=== PATIENT | male | born 1970 | race Hispanic/Latino ===

== ENCOUNTER → 2019-09-12 | Outpatient (CLI) | payer BC | END | disposition home or self-care (01) | LOC: LAB 09:50 | DX: R19.7 Diarrhea, unspecified (principal) | CPT/HCPCS: 36415 ==

== ENCOUNTER 2019-11-18 06:10 | Day surgery (SDC) | payer BC ==
[2019-11-18] MEDS ORDERED: SODIUM CHLORIDE 0.9% 1000 ML 1,000 ML ONE (07:05)
[2019-11-18] MEDS ORDERED: SODIUM CHLORIDE 0.9% 1000 ML 1,000 ML IV SCH (07:30)
--- NOTE | 2019-11-18 08:08 | Anesthesia Consultation ---
Anesthesia Consult and Med Hx Date of service: 11/18/19 - Airway Anesthetic Teeth Evaluation: Good (#25 loose) ROM Head & Neck: Adequate Mental/Hyoid Distance: Adequate Mallampati Class: Class II Intubation Access Assessment: Probably Good - Pre-Operative Health Status ASA Pre-Surgery Classification: ASA2 Proposed Anesthetic Plan: MAC - Pulmonary Hx Smoking: No Hx Asthma: No Hx Respiratory Symptoms: No SOB: No COPD: No Home Oxygen Therapy: No Hx Pneumonia: No Hx Sleep Apnea: Yes - Cardiovascular System Hx Hypertension: No Hx Coronary Artery Disease: No Hx Heart Attack/AMI: No Hx Angina: No Hx Percutaneous Transluminal Coronary Angioplasty (PTCA): No Hx Cardia Arrhythmia: No Hx Pacemaker: No Hx Internal Defibrillator: No Hx Valvular Heart Disease: No Hx Heart Murmur: No Hx Peripheral Vascular Disease: No - Central Nervous System Hx Neuromuscular Disorder: No Hx Seizures: No CVA: No Hx Back Pain: No Hx Psychiatric Problems: No - Gastrointestinal Hx Ulcer: No Hx Gastroesophageal Reflux Disease: No - Endocrine Hx Renal Disease: No Hx End Stage Renal Disease: No Hx Cirrhosis: No Hx Liver Disease: No Hx Insulin Dependent Diabetes: No Hx Non-Insulin Dependent Diabetes: No Hx Thyroid Disease: No Hx Hypothyroidism: No Hx Hyperthyroidism: No - Hematic Hx Anemia: No Hx Sickle Cell Disease: No - Other Systems Hx Alcohol Use: No Hx Substance Use: No Hx Cancer: No Hx Obesity: No
--- NOTE | 2019-11-18 08:09 | Anesthesia Day of Surgery ---
Anesthesia Day of Surgery - Day of Surgery Patient Examined: Yes Patient H&P Reviewed: Yes Patient is NPO: Yes
[2019-11-18] MEDS ORDERED: LIDOCAINE MPF (2%) 20 MG/1 ML VIAL 5 ML ONE (08:19)
[2019-11-18] MEDS ORDERED: propofoL 200 MG/20 ML VIAL IV ONE ×3 (08:19→08:41)
--- NOTE | 2019-11-18 09:05 | Short Stay Summary ---
Short Stay Documentation Date of service: 11/18/19 - History H&P: obtained from office - Allergies and Medications Current Medications: Allergies Penicillins Allergy (Verified 11/18/19 07:18) Hives Home Medications Medication Instructions Recorded Confirmed Last Taken Type Folic Acid 0.4 mg PO QDAY 11/18/19 11/18/19 11/15/19 History Glucos Sul 2Kcl/MSM/Chond/C/Mn 1 each PO DAILY 11/18/19 11/18/19 11/15/19 11:00 History [Glucosamine Chondroitin Cap] Magnesium Oxide [Magnesium] 400 mg PO DAILY 11/18/19 11/18/19 11/11/19 History Multivitamin [Multiple Vitamins] 1 each PO DAILY 11/18/19 11/18/19 11/11/19 History Simethicone [Phazyme] 180 mg PO DAILY 11/18/19 11/18/19 11/16/19 History Active Medications Sodium Chloride (Nacl 0.9% 1000 Ml) 1,000 mls @ 50 mls/hr IV DIRECT BHUMIKA - Brief post op/procedure progress note Date of procedure: 11/18/19 Findings: see dictations Estimated blood loss: minimal Pathology: list (1. Biopsies of 2nd portion of duodenum and bulb for celiac disease. 2. Antral biopsies for h.pylori) Specimen disposition: to lab Condition: stable - Disposition Condition at discharge: Good Disposition: DC-01 TO HOME OR SELFCARE - Discharge Diagnoses (1) Celiac disease/sprue Status: Acute (2) Abdominal pain Status: Acute (3) Abdominal bloating Status: Acute (4) Colon cancer screening Status: Acute Short Stay Discharge Plan Activity: other (No driving for 24 hours) Weight Bearing Status: Full Weight Bearing Diet: other (Gluten free diet) Follow up with: PRIMARY CARE, [Primary Care Provider] - 7 Days
--- NOTE | 2019-11-18 09:10 | Operative Report ---
Operative Report Operative Report: Date of procedure: 11/18/2019 Procedure: Esophagogastroduodenoscopy with biopsies of the descending duodenum and biopsies of the stomach. Preprocedure diagnosis: Abdominal bloating pain and altered bowel habits. Suspected celiac disease by serology. Post procedure diagnosis: Abnormal appearing descending duodenum with grossly flattened villi and patchy mild inflammatory changes suspicious for celiac disease. Endoscopist: Dr. Knott Anesthesia: Monitored anesthesia care per anesthesia department Medications: Propofol per anesthesia. Estimated blood loss: 0. After careful discussion of the nature and purpose of the procedure as well as details the technique risks benefits and alternatives consent was obtained. The patient was placed in the left lateral decubitus position and medicated per anesthesia. The tip of the the Olympus video upper scope was passed per orum under direct vision into the esophagus and advanced into the stomach and duodenal bulb. The duodenal bulb and pylorus were symmetrical and normal. The scope was withdrawn into the stomach and the stomach then gently insufflated with air. The antrum was normal. The stomach was rather elongated necessitating a change of scope to reach the duodenum effectively. The EGD scope was withdrawn followed by inserting the pediatric colonoscope poroma under direct vision into the esophagus and advanced into the descending duodenum up to the third portion. The mucosa of the third and second portions of the duodenum demonstrated grossly flattened villi and a few patchy areas of mild inflammation strongly suggestive of celiac disease. Multiple biopsies were taken from the second portion of the duodenum and the duodenal bulb. The stomach was further insufflated and the scope was then retroflexed and partially withdrawn. The scope was withdrawn into the stomach and biopsies of the antrum were taken for H. pylori testing. The cardia, fundus, and body of the stomach were within normal limits and easily distensible.The scope was then withdrawn in the forward position. The esophagogastric junction was at 42 cm. The esophageal body was normal throughout. The procedure was was well tolerated and the patient was observed in recovery. Impressions: Abnormal appearing descending duodenum and third portion strongly suggestive of celiac disease by appearance. Flattened villi were present as well as areas of patchy mild inflammation. Plan: Await biopsy results for confirmation. The patient will call the office in approximately 1 week. Gluten-free diet will be resumed pending pathology results. Electronically signed: Anthony Knott MD
--- NOTE | 2019-11-18 09:12 | Operative Report ---
Operative Report Operative Report: Date of procedure: 11/18/2019 Preprocedure diagnosis: Colon cancer screening, average risk profile. No prior studies. Post procedure diagnosis: Normal study. Procedure: Colonoscopy to the cecum Endoscopist: Dr. Knott Anesthesia: Monitored anesthesia care per anesthesia department Estimated blood loss: 0 Medications: Monitored anesthesia care. See separate report by anesthesia for details. After careful discussion of the nature and purpose of the procedure as well as details of the technique risks benefits and alternatives the patient gave consent. Please see recent history and physical from the office. The patient was placed in the left lateral decubitus position and medicated per anesthesia. A rectal exam was performed sphincter tone was normal there were no masses palpable. The Olympus pediatric colonoscope was passed transanally and advanced under continuous direct vision without difficulty to the cecum. The colon was well prepared. The cecum was normal. The ascending colon was normal and on forward and retroflexed views. The transverse colon, descending colon, and sigmoid colon were normal. The rectum was normal on forward and retroflexed views. The procedure was well-tolerated overall and the patient was observed in recovery. Conclusions: Normal colonoscopy to the cecum. Plan: Repeat colonoscopy in 10 years, sooner if clinically indicated. Signed electronically: Anthony Knott M.D.
[2019-11-18 09:31] LABS: Basophils % (Auto) 0.9 % (0.0-1.8); Eosinophils % (Auto) 1.2 % (0.0-4.3); Hematocrit 36.6 % (35.5-45.6); Hemoglobin 12.3 gm/dl (11.8-15.2); Lymphocytes # (Auto) 0.6 K/mm3 (1.2-5.4); Lymphocytes % (Auto) 23.5 % (13.4-35.0); Mean Corpuscular HGB Conc 34 % (32-34); Mean Corpuscular Volume 88 fl (84-94); Monocytes # (Auto) 0.2 K/mm3 (0.0-0.8); Monocytes % (Auto) 8.8 % (0.0-7.3); Platelet Count 229 K/mm3 (140-440); Red Blood Count 4.18 M/mm3 (3.65-5.03); Red Cell Distribution Width 13.7 % (13.2-15.2)
[2019-11-18 09:45] LABS: Alanine Aminotransferase 30 units/L (7-56); Albumin 3.9 g/dL (3.9-5); BUN/Creatinine Ratio 13; Blood Urea Nitrogen 14 mg/dL (9-20); Calcium 8.5 mg/dL (8.4-10.2); Hemolysis Index 5
[2019-11-18 10:08] VITALS: BP 112/67
--- NOTE | 2019-11-18 12:43 | Post Anesthesia Evaluation ---
- Post Anesthesia Evaluation Patient Participated: Yes Airway Patent: Yes Stable Respiratory Function: Yes Nausea/Vomiting: No Temp > 96.8F: Yes Pain Manageable: Yes Adequeate Hydration: Yes Anesthesia Complications: No
== END 2019-11-18 06:11 | disposition home or self-care (01) ==
LOC: GIO 06:10
PROVIDERS: ATTEND Internal Medicine Gastroenterology
DX: R10.9 Unspecified abdominal pain (principal); R19.4 Change in bowel habit; R14.0 Abdominal distension (gaseous); K31.89 Other diseases of stomach and duodenum; K29.50 Unspecified chronic gastritis without bleeding; G47.30 Sleep apnea, unspecified; Z88.0 Allergy status to penicillin; Z79.899 Other long term (current) drug therapy; Z98.890 Other specified postprocedural states; Z80.8 Family history of malignant neoplasm of other organs or systems
CPT/HCPCS: 36415; 43239; 45378; 80053; 85025; 88305; 88342; J2704; J7030

== ENCOUNTER 2020-02-24 10:50 | Outpatient (CLI) | payer BC ==
[2020-02-24 11:55] LABS: Basophils % (Auto) 1.1 % (0.0-1.8); Eosinophils # (Auto) 0.1 K/mm3 (0.0-0.4); Eosinophils % (Auto) 2.1 % (0.0-4.3); Hemoglobin 14.2 gm/dl (11.8-15.2); Lymphocytes # (Auto) 1.3 K/mm3 (1.2-5.4); Lymphocytes % (Auto) 29.1 % (13.4-35.0); Mean Corpuscular HGB Conc 34 % (32-34); Mean Corpuscular Volume 89 fl (84-94); Monocytes # (Auto) 0.5 K/mm3 (0.0-0.8); Monocytes % (Auto) 11.1 % (0.0-7.3); Platelet Count 260 K/mm3 (140-440); Red Blood Count 4.72 M/mm3 (3.65-5.03); Red Cell Distribution Width 13.6 % (13.2-15.2)
[2020-02-24 12:44] LABS: Alanine Aminotransferase 26 units/L (7-56); Albumin 4.7 g/dL (3.9-5); BUN/Creatinine Ratio 27; Blood Urea Nitrogen 27 mg/dL (9-20); Calcium 9.4 mg/dL (8.4-10.2); Chol/HDL Ratio 2.77 %; HDL Cholesterol 72 mg/dL (40-59); Hemolysis Index 0; Iron 93 ug/dL (49-181); LDL Cholesterol,Direct 136 mg/dL (50-130)
== END 2020-02-24 10:51 | disposition home or self-care (01) ==
LOC: LAB 10:50
PROVIDERS: ATTEND Family Medicine
DX: Z00.00 Encounter for general adult medical examination without abnormal findings (principal); K90.0 Celiac disease
CPT/HCPCS: 36415; 80053; 80061; 82525; 82607; 82747; 83540; 84630; 85025

== ENCOUNTER 2020-05-17 12:54 | Outpatient (CLI) | payer BC | END 2020-05-17 12:55 | disposition home or self-care (01) | LOC: LAB 12:54 | PROVIDERS: ATTEND Internal Medicine Gastroenterology | DX: K90.0 Celiac disease (principal) | CPT/HCPCS: 36415; 82306; 83970 ==

== ENCOUNTER 2020-11-18 12:02 | Outpatient (CLI) | payer BC ==
[2020-12-01 11:59] LABS: Tissue Transglutaminase IgA SEE SCANNED RESULTS; Tissue Transglutaminase IgA Ab SEE SCANNED RESULTS
== END 2020-11-18 12:03 | disposition home or self-care (01) ==
LOC: LAB 12:02
PROVIDERS: ATTEND Internal Medicine Gastroenterology
DX: K90.0 Celiac disease (principal)
CPT/HCPCS: 36415; 83516

== ENCOUNTER 2021-02-24 10:46 | Outpatient (CLI) | payer BC ==
[2021-02-24 11:50] LABS: Hemoglobin 13.8 gm/dl (11.8-15.2); Mean Corpuscular HGB Conc 31 % (32-34); Mean Corpuscular Volume 88 fl (84-94); Platelet Count 295 K/mm3 (140-440); Red Cell Distribution Width 13.9 % (13.2-15.2)
[2021-02-24 12:00] LABS: Alanine Aminotransferase 20 units/L (7-56); Albumin 4.8 g/dL (3.9-5); BUN/Creatinine Ratio 22; Blood Urea Nitrogen 24 mg/dL (9-20); Calcium 9.6 mg/dL (8.4-10.2); Chol/HDL Ratio 2.88 %; HDL Cholesterol 69 mg/dL (40-59); Hemolysis Index 5; LDL Cholesterol,Direct 137 mg/dL (50-130)
[2021-02-24 12:56] LABS: Bilirubin,Urine NEG (Negative); Blood,Urine NEG (Negative); Color,Urine Straw (Yellow); Mucus,Urine FEW /HPF; Protein,Urine <15 mg/dL mg/dL (Negative); RBC,Urine < 1.0 /HPF (0.0-6.0); Urobilinogen,Urine < 2.0 mg/dL (<2.0)
== END 2021-02-24 10:47 | disposition home or self-care (01) ==
LOC: LAB 10:46
PROVIDERS: ATTEND Internal Medicine
DX: Z00.00 Encounter for general adult medical examination without abnormal findings (principal); R10.9 Unspecified abdominal pain; E78.5 Hyperlipidemia, unspecified; E55.9 Vitamin D deficiency, unspecified; R39.11 Hesitancy of micturition
CPT/HCPCS: 36415; 80053; 80061; 81001; 82306; 82525; 82607; 82728; 82747; 83735; 84153; 84207; 84425; 84443; 84630; 85027

== ENCOUNTER 2021-03-08 09:25 | Outpatient (CLI) | payer BC ==
--- NOTE | 2021-03-08 11:45 | Ultrasound Report ---
US pelvic limited INDICATION / CLINICAL INFORMATION: UNSPECIFIED ABDOMINAL PAIN. COMPARISON: None available. FINDINGS: Limited grayscale imaging of the right lower quadrant and bladder. There is no evidence of mass, fluid collection, or other significant abnormality. The bladder is well distended without a significant abnormality. IMPRESSION: 1. No sonographic abnormality of the right lower quadrant/bladder. Scribed by: Melisa Gallardo RDMS, RVT Scribed: 03/08/2021 9:23 AM I have reviewed the images, agree with this report, and edited this report as needed. Signer Name: Lio Diaz MD Signed: 03/08/2021 11:40 AM Workstation Name: [id number]
== END 2021-03-08 09:26 | disposition home or self-care (01) ==
LOC: US 09:25
PROVIDERS: ATTEND Internal Medicine
DX: R10.9 Unspecified abdominal pain (principal)
CPT/HCPCS: 76857

== ENCOUNTER 2021-05-16 12:53 | Outpatient (CLI) | payer BC ==
[2021-05-16 14:12] LABS: Basophils # (Auto) 0.1 K/mm3 (0.0-0.1); Basophils % (Auto) 1.4 % (0.0-1.8); Eosinophils # (Auto) 0.1 K/mm3 (0.0-0.4); Eosinophils % (Auto) 2.4 % (0.0-4.3); Hematocrit 43.6 % (35.5-45.6); Hemoglobin 14.3 gm/dl (11.8-15.2); Lymphocytes # (Auto) 1.3 K/mm3 (1.2-5.4); Lymphocytes % (Auto) 31.3 % (13.4-35.0); Mean Corpuscular HGB Conc 33 % (32-34); Mean Corpuscular Volume 89 fl (84-94); Monocytes # (Auto) 0.5 K/mm3 (0.0-0.8); Monocytes % (Auto) 11.1 % (0.0-7.3); Platelet Count 275 K/mm3 (140-440); Red Blood Count 4.91 M/mm3 (3.65-5.03); Red Cell Distribution Width 13.6 % (13.2-15.2)
[2021-05-16 14:23] LABS: Alanine Aminotransferase 26 units/L (7-56); Albumin 4.8 g/dL (3.9-5); BUN/Creatinine Ratio 26; Blood Urea Nitrogen 23 mg/dL (9-20); Calcium 9.8 mg/dL (8.4-10.2); Hemolysis Index 4
[2021-05-16 14:24] LABS: Bilirubin,Direct < 0.2 mg/dL (0-0.2)
[2021-05-26 11:25] LABS: Tissue Transglutaminase IgA SEE SCANNED RESULT; Tissue Transglutaminase IgA Ab SEE SCANNED RESULT
== END 2021-05-16 12:54 | disposition home or self-care (01) ==
LOC: LAB 12:53
PROVIDERS: ATTEND Internal Medicine Gastroenterology
DX: K90.0 Celiac disease (principal)
CPT/HCPCS: 36415; 80053; 82247; 82248; 83516; 85025

== ENCOUNTER 2021-08-23 08:52 | Outpatient (CLI) | payer BC ==
[2021-08-23 12:31] LABS: Chol/HDL Ratio 2.96 %
== END 2021-08-23 08:53 | disposition home or self-care (01) ==
LOC: LABHHL 08:52
PROVIDERS: ATTEND Internal Medicine
DX: E78.5 Hyperlipidemia, unspecified (principal)
CPT/HCPCS: 36415; 80061